=== PATIENT | female | born 1960 | race Caucasian/White ===

== ENCOUNTER → 2016-09-27 | Outpatient (CLI) | payer BC ==
--- NOTE | 2016-09-27 17:04 | CT ---
EXAMINATION TYPE: CT brain wo con DATE OF EXAM: 09/27/2016 5:00 PM COMPARISON: 04/04/2012 HISTORY: Dizziness x [address] DLP: 1100.00 mGycm Automated exposure control for dose reduction was used. FINDINGS: Ventricles and sulci appear normal. There is no mass effect or midline shift. There is no sign of int racranial hemorrhage. The calvarium is intact. IMPRESSION: Negative unenhanced head CT scan. No change.
== END | disposition home or self-care (01) ==
LOC: RADCTMAIN 16:30
PROVIDERS: ATTEND Physician Assistant
DX: R51 Headache (principal)
CPT/HCPCS: 70450

== ENCOUNTER → 2017-03-09 | Outpatient (CLI) | payer BC ==
[2017-03-09 12:12] LABS: Basophils % (A) 1 %; CH 30.3; CHCM 32.9; Eosinophils # (A) 0.1 k/uL (0-0.7); Eosinophils % (A) 2 %; HCT 42.5 % (34.0-46.0); HDW 2.27; HGB 14.4 gm/dL (11.4-16.0); Luc # (Auto) 0.08; Luc % (Auto) 2; Lymphocytes # (A) 1.4 k/uL (1.0-4.8); Lymphocytes % (A) 31 %; MCH 31.3 pg (25.0-35.0); MCHC 33.9 g/dL (31.0-37.0); MCV 92.5 fL (80.0-100.0); Mean Platelet Volume 7.8; Monocytes # (A) 0.3 k/uL (0-1.0); Monocytes % (A) 6 %; Neutrophils # (A) 2.7 k/uL (1.3-7.7); Neutrophils % (A) 59 %; RBC 4.59 m/uL (3.80-5.40); RDW 12.5 % (11.5-15.5); WBC 4.6 k/uL (3.8-10.6); WBC (Perox) 4.67
[2017-03-09 13:06] LABS: ALT 39 U/L (9-52); AST 29 U/L (14-36); Alkaline Phosphatase 101 U/L (38-126); Anion Gap 10 mmol/L; Blood Urea Nitrogen 15 mg/dL (7-17); Calcium 9.4 mg/dL (8.4-10.2); Carbon Dioxide 26 mmol/L (22-30); Chloride 107 mmol/L (98-107); Cholesterol 184 mg/dL (<200); Creatine Kinase 95 U/L (30-135); Glucose 84 mg/dL (74-99); HDL Cholesterol 71 mg/dL (40-60); Magnesium 2.1 mg/dL (1.6-2.3); Non-African American GFR(MDRD) >60 (>60 ml/min/1.73 sqM); Phosphorous 2.9 mg/dL (2.5-4.5); Potassium 4.3 mmol/L (3.5-5.1); Sodium 143 mmol/L (137-145); Total Bilirubin 0.6 mg/dL (0.2-1.3); Total Protein 6.7 g/dL (6.3-8.2); Triglycerides 46 mg/dL (<150)
[2017-03-09 13:11] LABS: Rheumatoid Factor, Qnt <9 IU/mL (<12)
[2017-03-09 14:52] LABS: Erythrocyte Sedimentation Rate 4 mm/hr (0-20)
== END | disposition home or self-care (01) ==
LOC: LABWHC1 03-08 13:08
PROVIDERS: ATTEND Internal Medicine Critical Care Medicine
DX: Z00.00 Encounter for general adult medical examination without abnormal findings (principal); J45.909 Unspecified asthma, uncomplicated; R25.3 Fasciculation
CPT/HCPCS: 36415; 80053; 80061; 82085; 82550; 83735; 84100; 84439; 84443; 85025; 85652; 86038; 86141; 86431

== ENCOUNTER → 2017-03-30 | Outpatient (CLI) | payer BC ==
--- NOTE | 2017-04-02 12:08 | MM ---
Reason for exam: screening (asymptomatic). Last mammogram was performed 1 year and 4 months ago. History: Patient is postmenopausal and had first child at age 35. Family history of breast cancer at age 35. Took hormonal contraceptives for 4 years beginning at age 47. Physical Findings: A clinical breast exam by your physician is recommended on an annual basis and results should be correlated with mammographic findings. MG Screening Mammo w CAD Bilateral CC and MLO view(s) were taken. Prior study comparison: November 30, 2015, bilateral MG screening mammo w CAD. October 19, 2014, bilateral MG screening mammo w CAD. The breast tissue is heterogeneously dense. This may lower the sensitivity of mammography. Finding: There are typically benign calcifications in both breasts. No significant changes in finding since November 30, 2015 and October 19, 2014. ASSESSMENT: Benign, BI-RAD 2 RECOMMENDATION: Routine screening mammogram of both breasts in 1 year.
== END | disposition home or self-care (01) ==
LOC: RADMAMWWP 13:41
PROVIDERS: ATTEND Obstetrics & Gynecology
DX: Z12.31 Encounter for screening mammogram for malignant neoplasm of breast (principal); Z80.3 Family history of malignant neoplasm of breast

== ENCOUNTER → 2017-05-30 | Outpatient (CLI) | payer BC ==
--- NOTE | 2017-05-30 16:18 | BD ---
EXAMINATION TYPE: MG DEXA axial skeleton. DATE OF EXAM: 05/30/2017 COMPARISON: 2014 CLINICAL HISTORY: osteoporosis Height: 5'1 1/2 Weight: 97.8 FRAX RISK QUESTIONS: Alcohol (3 or more units per day): no Family History (Parent hip fracture): no Glucocorticoids (More than 3mos): yes (Ex: prednisone, prednisolone, methylprednisolone, dexamethasone, and hydrocortisone). History of Fracture in Adulthood: yes Secondary Osteoporosis: 1. Type 1 Diabetes: no 2. Hyperthyroidism: no 3. Menopause before 45: no 4. Malnutrition: no 5. Chronic liver disease: no Rheumatoid Arthritis: no Current Tobacco Use: no RISK FACTORS HISTORY OF: History of Wrist Fracture: rt When: 2006 Family History of Osteoporosis: Postmenopausal woman: MEDICATIONS: Additional Medications: asthma, Additional History: EXAM MEASUREMENTS: Bone mineral densitometry was performed using the [employer] System. Bone mineral density as measured about the Lumbar spine is: ----- L1-L4(G/cm2): 0.794 T Score Values are as follows: ----- L2: -3.7 ----- L3: -3.1 ----- L4: -2.8 ----- L1-L4: -3.2 Bone mineral density has: Decreased -2.7% since study of: 10/19/2014 Bone mineral density about the R hip (g/cm2): 0.725 Bone mineral density about the L hip (g/cm2): 0.755 T Score values are as follows: -----R Neck: -2.3 -----L Neck: -2.0 -----R Total: -2.1 -----L Total: -2.2 Bone mineral density has: Decreased -4.1% since study of: 10/19/2014 IMPRESSION: 1. Osteoporosis (T Score less than -2.5) as noted by T Score values at the lumbar spine There is increased fracture risk and therapy is usually indicated based on age. Re-Screen 1-2 years. Osteopenia (T Score between -2.5 and -1 as noted by T score values noted at both hips. There is slightly increased risk of fracture and the patient may be considered for treatment. Re-Screen 2-5 years. NOTE: T-SCORE=SD OF THE YOUNG ADULT MEAN.
== END | disposition home or self-care (01) ==
LOC: RADBDWWP 15:16
PROVIDERS: ATTEND Obstetrics & Gynecology
DX: M81.0 Age-related osteoporosis without current pathological fracture (principal); M85.851 Other specified disorders of bone density and structure, right thigh; M85.852 Other specified disorders of bone density and structure, left thigh
CPT/HCPCS: 77080

== ENCOUNTER 2017-11-29 05:43 | Day surgery (SDC) | payer BC ==
[2017-11-28 12:44] VITALS: BMI 18.3
[~2017-11-29 05:43] MED LIST: ALBUTEROL NEB (CONC) 2.5 MG/0.5 ML INHALATION ONE; ATROPINE SULFATE 0.4 MG/ML 1 ML VIAL IM ONE; LACTATED RINGERS 1,000 ML IV ONE; LIDOCAINE 2% (PF) 20 MG/ML 2 ML AMP INHALATION ONE; Pre Op ABX Message 1 EACH MISC MISCELLANE ONE
[2017-11-29 06:15] VITALS: TEMP 98
[2017-11-29] MEDS ORDERED: LACTATED RINGERS 1,000 ML IV ONE (06:26)
[2017-11-29 06:29] LABS: Glucose,Whole Blood 74 mg/dL (75-99)
[2017-11-29] MEDS ORDERED: LIDOCAINE 1% INJ 10MG/ML (20 ML MDV) ONE (07:03)
[2017-11-29] MEDS ORDERED: PROPOFOL 10 MG/ML 20 ML VIAL IV ONE (07:03)
[2017-11-29] MEDS ORDERED: LIDOCAINE 2% INJ 20 MG/ML INTRATRACH ONE (07:19)
[2017-11-29] MEDS ORDERED: methylPREDNISolone SOD SUCCI 125 MG/2 ML VIAL IV ONE (07:31)
[2017-11-29 07:38] VITALS: RESP 18
--- NOTE | 2017-11-29 08:33 | PCN ---
PROCEDURE NOTE PROCEDURE: Bronchoscopy, airway examination, therapeutic lavage, BAL. LOG SKIDDER: Dr. Olsen. PREOPERATIVE DIAGNOSIS: Severe asthma, retained secretions, probable infection. POSTOPERATIVE DIAGNOSIS: Severe asthma, retained secretions, probable infection. PROCEDURE: There was informed consent. There was universal timeout. The procedure took place in room #3. [facility]. [employer] provided general anesthesia, unconscious sedation. After the patient was adequately sedated and being fully monitored, the bronchoscope was inserted through the right nostril. It passed through the right nasopharynx into the oropharynx. The hypopharynx was identified. There was some purulence noted in the hypopharynx. The hypopharyngeal structures including anterior commissure, true cords, false cords, arytenoids, piriform sinuses, right and left vallecula all appeared normal. After topicalization, bronchoscope was passed through the glottic opening into the trachea. Trachea appeared normal. Trachea lance was sharp. Thin secretions were noted throughout the trachea. After topicalization of the right mainstem and left mainstem, the right upper lobe and its 3 segments, right middle lobe and its 2 segments, right lower lobe and its 5 segments, left upper lobe proper and its 2 segments, lingula and 2 segments and left lower lobe and its 4 segments were all found to have similar findings of diffuse moderate to severe bronchitis. There was mucosal erythema and hyperemia. The mucosa was friable. It bled easily. There was vascular engorgement. There were thick secretions noted throughout. They were suctioned. Then the bronchoscope was wedged into the right middle lobe. BAL took place. The patient tolerated the procedure well. Additional saline was used to suction any additional secretions. Afterward, the bronchoscope was withdrawn. There was no immediate complication. The patient tolerated the procedure well. MMODL / IJN: [id number] /
[2017-11-29 08:42] VITALS: BP 121/75; PULSE 91
[2017-11-29 10:00] LABS: Appearance,BF Blood Tinged; Nucleated Cells, Body Fluid 43 /uL; RBC, Body Fluid 2245 /uL
[2017-11-29 10:03] LABS: Mononuclear WBC,Body Fluid 89 %; Polynuclear WBC,Body Fluid 11 %; Total Cells Counted,Body Fluid 100
== END 2017-11-29 08:51 | disposition home or self-care (01) ==
LOC: ORWHC2ENDO 05:43
PROVIDERS: ATTEND Internal Medicine Critical Care Medicine
DX: J45.909 Unspecified asthma, uncomplicated (principal); M81.0 Age-related osteoporosis without current pathological fracture; M54.30 Sciatica, unspecified side; Z88.2 Allergy status to sulfonamides; Z79.51 Long term (current) use of inhaled steroids; Z79.52 Long term (current) use of systemic steroids; Z79.899 Other long term (current) drug therapy
CPT/HCPCS: 94640; 88108; 88305; 89050; 87070; 87205; 31624; J2001 ×3; J0461; J2930; J2704

== ENCOUNTER → 2018-10-24 | Outpatient (CLI) | payer BC ==
--- NOTE | 2018-10-25 16:48 | BD ---
EXAMINATION TYPE: Axial Bone Density DATE OF EXAM: 10/24/2018 COMPARISON: 05.30.2017 CLINICAL HISTORY: 58 YR OLD FEMALE...ICD-10 CODE: N95.1 POST MENOPAUSAL M81.0 OSTEOPOROSIS Height: 61.5 Weight: 95 FRAX RISK QUESTIONS: Glucocorticoids (More than 3mos): YES (Ex: prednisone, prednisolone, methylprednisolone, dexamethasone, and hydrocortisone). Rheumatoid Arthritis: LUPUS, RH FACTOR RISK FACTORS HISTORY OF: NO FX OVER 50 YRS OLD Family History of Osteoporosis: YES, MOTHER AND 2 MATERNAL AUNT...WITH BROKEN BONES Active: YES Postmenopausal woman: YES AT 52 YRS OLD If Premenopausal, do you have irregular periods: BCP FOR VERY LONG TIME....NONE NOW...STOPPED AT AGE 50 MEDICATIONS: Prednisone or other steroids: YES, ON AND OFF FOR MANY YRS, ASTHMA MEDS, INHALER AND TREATMENTS How Long: MANY YRS Osteoporosis Medications: YES, FORTEO INJECTIONS, 1 YR...AND DIFFERENT MEDS IN THE PAST FOR BONE LOS S, Additional Medications: SINGULAIR FOR ASTHMA, VIT D , Additional History: ASTHMA, OSTEOPOROSIS, EXAM MEASUREMENTS: Bone mineral densitometry was performed using the [employer] System. Bone mineral density as measured about the Lumbar spine is: ----- L1-L4(G/cm2): 0.826 T Score Values are as follows: ----- L1: -3.2 ----- L2: -3.5 ----- L3: -2.7 ----- L4: -2.8 ----- L1-L4: -2.9 Bone mineral density has: Increased 3.4% since study of: 05.30.2017 Bone mineral density about the R hip (g/cm2): 0.699 Bone mineral density about the L hip (g/cm2): 0.739 T Score values are as follows: -----R Neck: -2.2 -----L Neck: -2.1 -----R Total: -2.5 -----L Total: -2.1 Bone mineral density has: Decreased -3.7% since study of: 05.30.2017 FRAX%s: THERE IS A 13.6% CHANCE FOR A MAJOR OSTEOPOROTIC FX AND A 2.6% FOR HIP...PROBABILITY OF FX IN 10 YRS TIME IMPRESSION: Osteoporosis (T Score less than -2.5). There is increased fracture risk and therapy is usually indicated based on age. Re-Screen 1-2 years. NOTE: T-SCORE=SD OF THE YOUNG ADULT MEAN.
--- NOTE | 2018-10-28 08:14 | MM ---
Reason for exam: screening (asymptomatic). Last mammogram was performed 1 year and 7 months ago. History: Patient is postmenopausal and had first child at age 35. Family history of breast cancer at age 35. Took hormonal contraceptives for 4 years beginning at age 47. Physical Findings: A clinical breast exam by your physician is recommended on an annual basis and results should be correlated with mammographic findings. MG Screening Mammo w CAD Bilateral CC and MLO view(s) were taken. Prior study comparison: March 30, 2017, bilateral MG screening mammo w CAD. November 30, 2015, bilateral MG screening mammo w CAD. The breast tissue is heterogeneously dense. This may lower the sensitivity of mammography. No significant changes when compared with prior studies. ASSESSMENT: Benign, BI-RAD 2 RECOMMENDATION: Routine screening mammogram of both breasts in 1 year.
== END | disposition home or self-care (01) ==
LOC: RADMAMWWP 15:02
PROVIDERS: ATTEND Obstetrics & Gynecology
DX: Z12.31 Encounter for screening mammogram for malignant neoplasm of breast (principal); M81.0 Age-related osteoporosis without current pathological fracture; N95.1 Menopausal and female climacteric states
CPT/HCPCS: 77067; 77080

== ENCOUNTER → 2018-11-22 | Outpatient (CLI) | payer BC ==
--- NOTE | 2018-11-22 12:54 | CT ---
EXAMINATION TYPE: CT iac wo con DATE OF EXAM: 11/22/2018 COMPARISON: CT brain September 27, 2016 HISTORY: Left sided ear pain and pressure CT DLP: 150 mGycm. Automated Exposure Control for Dose Reduction was Utilized. TECHNIQUE: CT scan of internal auditory canal is performed without contrast, thin cut axial images ar e obtained, coronal reformatted images are also reviewed. FINDINGS: The external auditory canals are patent bilaterally. Mastoid air cells show no evidence of abnormal opacification bilaterally. The middle ear ossicles are symmetric and unremarkable. There is no evidence of suspicious surrounding soft tissue density to suggest cholesteatoma. The scutum is preserved bilaterally. The cochlea and the semicircular canals are symmetric and unremarkable. Ves tibular aqueduct and internal carotid canal appear unremarkable. Temporomandibular joints show flattening of the mandibular condyles bilaterally with some spurring, s ome subchondral cystic change on the right is present. Suspect persistent mucous retention cyst or po lyp left maxillary sinus axial image 30 unchanged from prior with completely opacified single sinus a ir cell. Visualized paranasal sinuses are otherwise grossly clear. Visualized portion brain parenchy ma is felt within normal limits. IMPRESSION: No significant abnormality seen to account for patient's symptoms on dedicated IAC CT. N o significant change from prior CT brain study.
== END | disposition home or self-care (01) ==
LOC: RADCTMAIN 12:07
PROVIDERS: ATTEND Otolaryngology
DX: H92.09 Otalgia, unspecified ear (principal)
CPT/HCPCS: 70480

== ENCOUNTER → 2020-05-17 | Outpatient (CLI) | payer BC ==
[2020-05-17 14:49] LABS: Basophils # (A) 0.1 k/uL (0-0.2); Basophils % (A) 1 %; Eosinophils # (A) 0.1 k/uL (0-0.7); Eosinophils % (A) 2 %; HCT 44.6 % (34.0-46.0); HGB 14.4 gm/dL (11.4-16.0); Lymphocytes # (A) 1.9 k/uL (1.0-4.8); Lymphocytes % (A) 28 %; MCH 29.8 pg (25.0-35.0); MCHC 32.3 g/dL (31.0-37.0); MCV 92.1 fL (80.0-100.0); Monocytes # (A) 0.4 k/uL (0-1.0); Monocytes % (A) 6 %; Neutrophils # (A) 4.3 k/uL (1.3-7.7); Neutrophils % (A) 62 %; Platelet Count 244 k/uL (150-450); RBC 4.85 m/uL (3.80-5.40); RDW 12.8 % (11.5-15.5); WBC 6.9 k/uL (3.8-10.6)
[2020-05-18 03:34] LABS: ALT 22 U/L (8-44); AST 29 U/L (13-35); African American GFR (CKD) 79.4 (60.0-200.0); Albumin/Globulin Ratio 2.32 (1.60-3.17); Alkaline Phosphatase 123 U/L (41-126); BUN/Creat Ratio 18.89 Ratio (12.00-20.00); Calcium 9.5 mg/dL (8.7-10.3); Carbon Dioxide 26.7 mmol/L (21.6-31.8); Chloride 105 mmol/L (96-109); Chol/HDL Ratio 2.71; Cholesterol 187 mg/dL (0-200); Globulin 1.9 g/dL (1.6-3.3); Glucose 87 mg/dL (70-110); Non-African American GFR(CKD) 68.5 (60.0-200.0); Potassium 4.6 mmol/L (3.5-5.5); Sodium 142 mmol/L (135-145); Total Bilirubin 0.7 mg/dL (0.3-1.2); Total Protein 6.3 g/dL (6.2-8.2); Triglycerides <50.0 mg/dL (0.0-149.0)
[2020-05-18 03:47] LABS: Hemoglobin A1C 5.6 % (4.0-6.0)
== END | disposition home or self-care (01) ==
LOC: LABWHC1 14:17
PROVIDERS: ATTEND Internal Medicine Critical Care Medicine
DX: Z00.00 Encounter for general adult medical examination without abnormal findings (principal); J45.909 Unspecified asthma, uncomplicated; M85.80 Other specified disorders of bone density and structure, unspecified site
CPT/HCPCS: 36415; 80053; 80061; 82306; 83036; 84439; 84443; 85025

== ENCOUNTER → 2020-06-21 | Outpatient (CLI) | payer BC ==
--- NOTE | 2020-06-21 16:37 | FL ---
EXAMINATION TYPE: FL barium swallow w video DATE OF EXAM: 06/21/2020 MODIFIED BARIUM SWALLOW FLUOROSCOPY EXAM CLINICAL HISTORY: Esophageal dysphasia. Choking. TECHNIQUE: Notified barium swallow study is performed utilizing thin liquid barium, honey and nectar thick liquid barium, barium thick puree, and barium coated cracker. COMPARISON: None. FINDINGS: The oral and pharyngeal phases show satisfactory initiation and propagation with all modali ties tested. Normal mastication is seen with solid modalities tested. There is no evidence of penet ration or aspiration with any modality tested. No significant pharyngeal residue was appreciated. Total fluoroscopy time 43 seconds IMPRESSION: No evidence of penetration or aspiration. Please refer to speech therapist notes for fu rther details if necessary.
== END | disposition home or self-care (01) ==
LOC: RADFLMAIN 11:18
PROVIDERS: ATTEND Internal Medicine Critical Care Medicine
DX: R13.19 Other dysphagia (principal)
CPT/HCPCS: 74230

== ENCOUNTER → 2021-03-25 | Outpatient (CLI) | payer BC ==
--- NOTE | 2021-03-25 11:47 | BD ---
EXAMINATION TYPE: Axial Bone Density DATE OF EXAM: 03/25/2021 COMPARISON: NONE CLINICAL HISTORY: Height: 62 Weight: 94.1 FRAX RISK QUESTIONS: Alcohol (3 or more units per day): no Family History (Parent hip fracture): no Glucocorticoids (More than 3mos): no (Ex: prednisone, prednisolone, methylprednisolone, dexamethasone, and hydrocortisone). History of Fracture in Adulthood: yes Secondary Osteoporosis: 1. Type 1 Diabetes: no 2. Hyperthyroidism: no 3. Menopause before 45: no 4. Malnutrition: no 5. Chronic liver disease: no Rheumatoid Arthritis: no Current Tobacco Use: no RISK FACTORS HISTORY OF: History of Wrist Fracture: When: Surgery to Spine/Hip(right/left)/Wrist (right/left): no Family History of Osteoporosis: yes Active: yes Diet low in dairy products/other sources of calcium: no Postmenopausal woman: age 50 Lost more than 2 inches in height since high school: no MEDICATIONS: asthma meds, singular, vitamins Additional History: EXAM MEASUREMENTS: Bone mineral densitometry was performed using the [employer]. Bone mineral density as measured about the Lumbar spine is: ----- L1-L4(G/cm2): 0.757 T Score Values are as follows: ----- L2: -4.1 ----- L3: -3.4 ----- L4: -3.0 ----- L1-L4: -3.5 Bone mineral density has: decreased -2.9 % since study of: 10.24.2018 Bone mineral density about the R hip (g/cm2): 0.718 Bone mineral density about the L hip (g/cm2): 0.734 T Score values are as follows: -----R Neck: -2.3 -----L Neck: -2.2 -----R Total: -2.6 -----L Total: -2.3 Bone mineral density has: decreased -7.8 % since study of: 10.24.2018 IMPRESSION: Osteoporosis NOTE: T-SCORE=SD OF THE YOUNG ADULT MEAN.
--- NOTE | 2021-03-29 10:12 | MM ---
Reason for exam: screening (asymptomatic). Last mammogram was performed 2 years and 5 months ago. History: Patient is postmenopausal and had first child at age 35. Family history of breast cancer at age 35. Took hormonal contraceptives for 4 years beginning at age 47. Physical Findings: A clinical breast exam by your physician is recommended on an annual basis and results should be correlated with mammographic findings. MG Screening Mammo w CAD Bilateral CC and MLO view(s) were taken. Prior study comparison: October 24, 2018, bilateral MG screening mammo w CAD. March 30, 2017, bilateral MG screening mammo w CAD. The breast tissue is heterogeneously dense. This may lower the sensitivity of mammography. No significant changes when compared with prior studies. ASSESSMENT: Negative, BI-RAD 1 RECOMMENDATION: Routine screening mammogram of both breasts in 1 year.
== END | disposition home or self-care (01) ==
LOC: RADMAMWWP 09:27
PROVIDERS: ATTEND Obstetrics & Gynecology
DX: Z12.31 Encounter for screening mammogram for malignant neoplasm of breast (principal); M81.0 Age-related osteoporosis without current pathological fracture; Z78.0 Asymptomatic menopausal state; Z79.3 Long term (current) use of hormonal contraceptives; Z80.3 Family history of malignant neoplasm of breast
CPT/HCPCS: 77067; 77080

== ENCOUNTER → 2021-07-09 | Outpatient (CLI) | payer BC ==
[2021-07-09 13:53] LABS: Basophils # (A) 0.07 X 10*3/uL (0.00-0.10); Basophils % (A) 1.4 %; Eosinophils # (A) 0.21 X 10*3/uL (0.04-0.35); Eosinophils % (A) 4.3 %; Erythrocyte Sedimentation Rate 4 mm/Hr (0-30); HCT 46.9 % (37.2-46.3); HGB 14.5 g/dL (12.0-15.0); Lymphocytes # (A) 1.59 X 10*3/uL (0.90-5.00); Lymphocytes % (A) 32.6 %; MCH 29.5 pg (27.0-32.0); MCHC 30.9 g/dL (32.0-37.0); MCV 95.3 fL (80.0-97.0); Mean Platelet Volume 10.6 fL (9.5-12.2); Monocytes # (A) 0.55 X 10*3/uL (0.20-1.00); Monocytes % (A) 11.3 %; Neutrophils # (A) 2.44 X 10*3/uL (1.80-7.70); Neutrophils % (A) 50.2 %; Platelet Count 268 X 10*3/uL (140-440); RBC 4.92 X 10*6/uL (4.10-5.20); RDW 12.5 % (11.5-14.5); WBC 4.87 X 10*3/uL (4.50-10.00)
[2021-07-09 13:54] LABS: ALT 23 U/L (8-44); AST 23 U/L (13-35); African American GFR (CKD) 82.6 (60.0-200.0); Albumin 4.6 g/dL (3.8-4.9); Albumin/Globulin Ratio 2.11 (1.60-3.17); Alkaline Phosphatase 121 U/L (41-126); BUN/Creat Ratio 18.24 Ratio (12.00-20.00); Blood Urea Nitrogen 15.8 mg/dL (9.0-27.0); C Reactive Protein, High Sens 0.718 mg/L (0.000-3.000); Calcium 9.9 mg/dL (8.7-10.3); Carbon Dioxide 25.7 mmol/L (21.6-31.8); Chloride 103 mmol/L (96-109); Chol/HDL Ratio 2.96 Ratio; Creatine Kinase 80 U/L (26-186); Globulin 2.2 g/dL (1.6-3.3); Glucose 93 mg/dL (70-110); Non-African American GFR(CKD) 71.3 (60.0-200.0); Potassium 4.6 mmol/L (3.5-5.5); Sodium 141 mmol/L (135-145); Total Protein 6.7 g/dL (6.2-8.2); VLDL Calculation 9.32 mg/dL (5.00-40.00)
[2021-07-09 13:59] LABS: Protein, Total 6.8 g/dL (6.2-8.2)
[2021-07-09 16:53] LABS: Rheumatoid Factor, Qnt <10 IU/mL (0-15)
[2021-07-10 18:11] LABS: Anti-DNA, DS unit <1.0 IU/mL; Anti-Smith Ab Interp NEGATIVE (NEGATIVE); DNA Double-Stranded NEGATIVE (NEGATIVE)
[2021-07-11 11:01] LABS: Angiotensin-1 Converting Enz. 28 U/L (8-52)
== END | disposition home or self-care (01) ==
LOC: LABWHC1 08:38
PROVIDERS: ATTEND Internal Medicine Critical Care Medicine
DX: Z00.00 Encounter for general adult medical examination without abnormal findings (principal); M36.8 Systemic disorders of connective tissue in other diseases classified elsewhere; M81.0 Age-related osteoporosis without current pathological fracture; J45.909 Unspecified asthma, uncomplicated; M54.40 Lumbago with sciatica, unspecified side
CPT/HCPCS: 36415; 80053; 80061; 82164; 82306; 82550; 83036; 83721; 84165; 84439; 84443; 85025; 85652; 86038; 86141; 86225; 86235; 86255; 86431

== ENCOUNTER → 2022-06-15 | Outpatient (CLI) | payer BC ==
--- NOTE | 2022-06-16 09:48 | MM ---
Reason for Exam: Screening (asymptomatic). Last mammogram was performed 1 year(s) and 3 month(s) ago. Patient History: Menarche at age 10. First Full-Term at age 35. Late child-bearing (after 30). Postmenopausal. Patient has history of breast feeding. Hormonal Contraceptives for 4 years from age 47 until age 52. Maternal aunt had ovarian cancer, age 50. Maternal aunt had ovarian cancer, age 50. Maternal cousin had ovarian cancer, age 45. Risk Values: Rossana 5 year model risk: 2.2%. NCI Lifetime model risk: 8.9%. Prior Study Comparison: 03/30/2017 Bilateral Screening Mammogram, [facility]. 10/24/2018 Bilateral Screening Mammogram, [facility]. 03/25/2021 Bilateral Screening Mammogram, [facility]. Tissue Density: The breast tissue is heterogeneously dense. This may lower the sensitivity of mammography. Findings: Analyzed By CAD. Focal asymmetry central upper outer quadrant right breast appears more defined. This may represent superimposition shadow but further evaluation is recommended. Otherwise, no significant change. Overall Assessment: Incomplete: need additional imaging evaluation, BI-RAD 0 Management: Special View Mammogram of the right breast. Including spot 3-D CC, spot 3-D MLO, and 3-D LM views. Targeted right breast ultrasound if any persisting abnormality. [facility] will attempt to contact patient to return for supplemental views and ultrasound if indicated. Electronically signed and approved by: Chey Oneil M.D. Radiologist
== END | disposition home or self-care (01) ==
LOC: RADMAMWWP 15:42
PROVIDERS: ATTEND Obstetrics & Gynecology
DX: Z12.31 Encounter for screening mammogram for malignant neoplasm of breast (principal); Z78.0 Asymptomatic menopausal state
CPT/HCPCS: 77067

== ENCOUNTER → 2022-06-21 | Outpatient (CLI) | payer BC ==
--- NOTE | 2022-06-21 15:18 | MM ---
Reason for Exam: Additional evaluation requested from abnormal screening. Last screening mammogram was performed less than 1 month ago. Patient History: Menarche at age 10. First Full-Term at age 35. Late child-bearing (after 30). Postmenopausal. Patient has history of breast feeding. Hormonal Contraceptives for 4 years from age 47 until age 52. Maternal aunt had ovarian cancer, age 50. Maternal aunt had ovarian cancer, age 50. Maternal cousin had ovarian cancer, age 45. Risk Values: Rossana 5 year model risk: 2.2%. NCI Lifetime model risk: 8.9%. Prior Study Comparison: 10/24/2018 Bilateral Screening Mammogram, [facility]. 03/25/2021 Bilateral Screening Mammogram, [facility]. 06/15/2022 Bilateral MG screening mammo w CAD, [facility]. Tissue Density: Right: The breast tissue is heterogeneously dense. This may lower the sensitivity of mammography. Findings: Analyzed By CAD. Pattern appears stable. Under compression no persistent suspicious architectural distortion or focal asymmetry is evident. Right medial lateral view appears normal. Overall Assessment: Probably benign, BI-RAD 3 Management: Diagnostic Mammogram of the right breast in 6 months. A clinical breast exam by your physician is recommended on an annual basis and results should be correlated with mammographic findings. This exam should not preclude additional follow-up of suspicious palpable abnormalities. Results were given to the patient verbally at the time of exam. Electronically signed and approved by: Tiago Horta D.O. Radiologis
== END | disposition home or self-care (01) ==
LOC: RADMAMWWP 14:56
PROVIDERS: ATTEND Obstetrics & Gynecology
DX: R92.8 Other abnormal and inconclusive findings on diagnostic imaging of breast (principal); Z78.0 Asymptomatic menopausal state; Z80.41 Family history of malignant neoplasm of ovary
CPT/HCPCS: 77065

== ENCOUNTER → 2022-12-18 | Outpatient (CLI) | payer BC ==
--- NOTE | 2022-12-18 14:44 | MM ---
Reason for Exam: Follow-up at short interval from prior study. Last screening mammogram was performed 6 month(s) ago. Patient History: Menarche at age 10. First Full-Term at age 35. Late child-bearing (after 30). Postmenopausal. Patient has history of breast feeding. Hormonal Contraceptives for 4 years from age 47 until age 52. Maternal aunt had ovarian cancer, age 50. Maternal aunt had ovarian cancer, age 50. Maternal cousin had ovarian cancer, age 45. Risk Values: Rossana 5 year model risk: 2.2%. NCI Lifetime model risk: 8.9%. Prior Study Comparison: 03/25/2021 Bilateral Screening Mammogram, [facility]. 06/15/2022 Bilateral MG screening mammo w CAD, [facility]. 06/21/2022 Right MG work up mamm w CAD RT, [facility]. Tissue Density: Right: The breast tissue is heterogeneously dense. This may lower the sensitivity of mammography. Findings: Analyzed By CAD. A few scattered tiny round calcifications in the right breast are redemonstrated. Benign-appearing vascular calcification in the right breast is again seen. Overall Assessment: Benign, BI-RAD 2 Management: Screening Mammogram of both breasts in 6 months. Back on schedule. Results were given to the patient verbally at the time of exam. Electronically signed and approved by: Emmanuel Rao M.D.
--- NOTE | 2022-12-18 15:04 | USB ---
Reason for Exam: Follow-up at short interval from prior study. Patient History: Menarche at age 10. First Full-Term at age 35. Late child-bearing (after 30). Postmenopausal. Patient has history of breast feeding. Hormonal Contraceptives for 4 years from age 47 until age 52. Maternal aunt had ovarian cancer, age 50. Maternal aunt had ovarian cancer, age 50. Maternal cousin had ovarian cancer, age 45. Niece had breast cancer under age 50. Niece had breast cancer at or over age 50. Risk Values: Rossana 5 year model risk: 2.2%. NCI Lifetime model risk: 8.9%. Technique: Method: Whole Breast Handheld. Prior Study Comparison: 03/25/2021 Bilateral Screening Mammogram, [facility]. 06/15/2022 Bilateral MG screening mammo w CAD, [facility]. 06/21/2022 Right MG work up mamm w CAD RT, [facility]. Findings: The whole breast of the right breast, the axilla of the right breast and the retroareolar of the right breast were scanned. Imaged: Ultrasound imaging of: All 4 quadrants, the retroareolar region and axilla. No evidence for organizing fluid collection or mass. Overall Assessment: Negative, BI-RAD 1 Management: Screening Mammogram of both breasts in 1 year. A clinical breast exam by your physician is recommended on an annual basis and results should be correlated with mammographic findings. This exam should not preclude additional follow-up of suspicious palpable abnormalities. Results were given to the patient verbally at the time of exam. Electronically signed and approved by: David Frank DO
== END | disposition home or self-care (01) ==
LOC: RADMAMWWP 14:07
PROVIDERS: ATTEND Obstetrics & Gynecology
DX: R92.8 Other abnormal and inconclusive findings on diagnostic imaging of breast (principal); Z78.0 Asymptomatic menopausal state
CPT/HCPCS: 77061; 77065

== ENCOUNTER → 2023-08-01 | Outpatient (CLI) | payer BC, MEDICARE ==
--- NOTE | 2023-08-05 18:09 | MM ---
Reason for Exam: Screening (asymptomatic). Last mammogram was performed 1 year(s) and 2 month(s) ago. Patient History: Menarche at age 10. First Full-Term at age 35. Late child-bearing (after 30). Postmenopausal. Patient has history of breast feeding. Estrogen, starting at age 62 for 1 year. Hormonal Contraceptives for 4 years from age 47 until age 52. Maternal aunt had ovarian cancer, age 50. Maternal aunt had ovarian cancer, age 50. Maternal cousin had ovarian cancer, age 45. Niece had breast cancer under age 50. Niece had breast cancer at or over age 50. Risk Values: Rossana 5 year model risk: 2.3%. NCI Lifetime model risk: 8.6%. Prior Study Comparison: 06/15/2022 Bilateral MG screening mammo w CAD, [facility]. 06/21/2022 Right MG work up mamm w CAD RT, [facility]. 12/18/2022 Right MG 3D diag mammo w/cad RT, [facility]. Tissue Density: The breast tissue is heterogeneously dense. This may lower the sensitivity of mammography. Findings: Analyzed By CAD. There is no suspicious group of microcalcifications or new suspicious mass in either breast. Overall Assessment: Negative, BI-RAD 1 Management: Screening Mammogram of both breasts in 1 year. . Patient should continue monthly self-breast exams. A clinical breast exam by your physician is recommended on an annual basis. This exam should not preclude additional follow-up of suspicious palpable abnormalities. Note on Rossana scores and lifetime risk: 1. A Rossana score greater than 3% is considered moderate risk. If this is the case, consider specialist referral to assess eligibility for a risk reducing agent. 2. If overall lifetime risk for the development of breast cancer is 20% or higher, the patient may qualify for future screening with alternating mammogram and breast MRI. Electronically signed and approved by: Chey Oneil M.D. Radiologist
== END | disposition home or self-care (01) ==
LOC: RADMAMWWP 15:20
PROVIDERS: ATTEND Obstetrics & Gynecology
DX: Z12.31 Encounter for screening mammogram for malignant neoplasm of breast (principal); Z78.0 Asymptomatic menopausal state; Z80.41 Family history of malignant neoplasm of ovary
CPT/HCPCS: 77063; 77067

== ENCOUNTER → 2023-08-23 | Outpatient (CLI) | payer MEDICARE ==
--- NOTE | 2023-08-23 14:09 | BD ---
EXAMINATION TYPE: Axial Bone Density DATE OF EXAM: 08/23/2023 CLINICAL HISTORY: 63 years old Female. ICD-10 CODE: M85.88 OTH DISRD OF BONE DENSITY AND STRUCTURE Height: 61.5 Weight: 92 FRAX RISK QUESTIONS: Family History (Parent hip fracture): no History of Fracture in Adulthood: yes, lt wrist , lt tib, Secondary Osteoporosis: no RISK FACTORS HISTORY OF: History of Wrist Fracture: yes When: 2012 Family History of Osteoporosis: yes Active: yes Diet low in dairy products/other sources of calcium: no Postmenopausal woman: yes Lost more than 2 inches in height since high school: no Frequent falls: no MEDICATIONS: Additional Medications: no asthma Additional History: yes lupus EXAM MEASUREMENTS: Bone mineral densitometry was performed using the [employer] System. Bone mineral density as measured about the Lumbar spine is: ----- L1-L4(G/cm2): 0.799 T Score Values are as follows: ----- L1: -3.5 ----- L2: -3.7 ----- L3: -3.2 ----- L4: -2.8 ----- L1-L4: -3.2 Z Score Values are as follows: ----- L1: -1.1 ----- L2: -1.3 ----- L3: -0.8 ----- L4: -0.4 ----- L1-L4: -0.8 Bone mineral density has: Increased 5.5% since study of: 03/25/2021 Bone mineral density about the R hip (g/cm2): 0.704 Bone mineral density about the L hip (g/cm2): 0.721 T Score values are as follows: -----R Neck: -2.4 -----L Neck: -2.4 -----R Total: -2.4 -----L Total: -2.3 Z Score values are as follows: -----R Neck: -0.4 -----L Neck: -0.4 -----R Total: -0.7 -----L Total: -0.5 Bone mineral density has: Increased 2.1% since study of: 03/25/2021 FRAX%s: The graph provided illustrates a 17% chance for a major osteoporotic fx and a 3.9% chance for the hips probability for fx in 10 years time. IMPRESSION: Osteoporosis (T Score less than -2.5). There is increased fracture risk and therapy is usually indicated based on age. Re-Screen 1-2 years. NOTE: T-SCORE=SD OF THE YOUNG ADULT MEAN.
== END | disposition home or self-care (01) ==
LOC: RADBDWWP 08:35
PROVIDERS: ATTEND Obstetrics & Gynecology
DX: M81.0 Age-related osteoporosis without current pathological fracture (principal); M85.89 Other specified disorders of bone density and structure, multiple sites; Z78.0 Asymptomatic menopausal state
CPT/HCPCS: 77080

== ENCOUNTER 2024-07-10 09:22 | Day surgery (SDC) | payer MEDICARE ==
--- NOTE | 2024-07-10 07:35 | P.GSHP ---
History of Present Illness H&P Date: 07/10/24 CHIEF COMPLAINT: GERD and colon screen HISTORY OF PRESENT ILLNESS: The patient is a 64-year-old female who presents with gastroesophageal reflux disease and need for colon screen. Upper and lower endoscopy were offered for further evaluation and management. PAST MEDICAL HISTORY: Please see list. PAST SURGICAL HISTORY: Please see list. MEDICATIONS: Please see list. ALLERGIES: Please see list. SOCIAL HISTORY: No illicit drug use FAMILY HISTORY: No reports of Crohn disease or ulcerative colitis. REVIEW OF ORGAN SYSTEMS: CONSTITUTIONAL: No reports of fevers or chills. GI: Denies any blood in stools or constipation. PHYSICAL EXAM: VITAL SIGNS: Stable GENERAL: Well-developed pleasant in no acute distress. HEENT: No scleral icterus. Extraocular movements grossly intact. Moist buccal mucosa. NECK: Supple without lymphadenopathy. CHEST: Unlabored respirations. Equal bilateral excursions. CARDIOVASCULAR: Regular rate and rhythm. Distal 2+ pulses. ABDOMEN: Soft, nondistended. MUSCULOSKELETAL: No clubbing, cyanosis, or edema. ASSESSMENT: 1. Gastroesophageal reflux disease 2. Colon screen. PLAN: 1. Recommend proceeding with an upper and lower endoscopy Past Medical History Past Medical History: Asthma, Pneumonia Additional Past Medical History / Comment(s): OSTEOPOROSIS, LUPUS, HAVING DIFFICULTY SWALLOWING-STATES SHE CHOKES ON LIQUIDS WITH SOLID FOOD LIKE SOUP. chemo cream for pre cancerous areas on skin History of Any Multi-Drug Resistant Organisms: None Reported Additional Past Surgical History / Comment(s): D & C 1992. COLONOSCOPY. BRONCHOSCOPY. Past Anesthesia/Blood Transfusion Reactions: No Reported Reaction, Family History of Problems w/ Anesthesia Additional Past Anesthesia/Blood Transfusion Reaction / Comment(s): mother had issue with anesthesia not fevers, just very reactive to it. Smoking Status: Never smoker - Past Family History Mother Family Medical History: Cancer, Deep Vein Thrombosis (DVT) Additional Family Medical History / Comment(s): SKIN CANCER Father Family Medical History: Cancer Additional Family Medical History / Comment(s): SKIN CANCER Medications and Allergies Home Medications Medication Instructions Recorded Confirmed Type Albuterol Inhaler [Ventolin Hfa 1 - 2 puff INHALATION Q6HR PRN 11/28/17 07/08/24 History Inhaler] Cholecalciferol [Vitamin D3] 1,000 unit PO DAILY 11/28/17 07/08/24 History Montelukast [Singulair] 10 mg PO HS 11/28/17 07/08/24 History Albuterol Nebulized [Ventolin 1.25 mg INHALATION DIRECTED PRN 01/24/19 07/08/24 History Nebulized] Ascorbic Acid [Vitamin C] 500 mg PO DAILY 06/04/20 07/08/24 History Calcium (Unk) 1,200 units PO DAILY 07/08/24 07/08/24 History Fluticasone/Vilanterol [Breo 1 puff INHALATION DAILY 07/08/24 07/08/24 History Ellipta 200-25 Mcg Inhaler] Allergies Allergy/AdvReac Type Severity Reaction Status Date / Time acetaminophen [From Fioricet] Allergy Rash/Hives Verified 07/08/24 11:50 butalbital [From Fioricet] Allergy Rash/Hives Verified 07/08/24 11:50 caffeine [From Fioricet] Allergy Rash/Hives Verified 07/08/24 11:50 morphine Allergy Rash/Hives Verified 07/08/24 11:50 Sulfa (Sulfonamide Allergy Rash/Hives Verified 07/08/24 11:50 Antibiotics)
[~2024-07-10 09:22] MED LIST changes: -ALBUTEROL NEB (CONC) 2.5 MG/0.5 ML INHALATION ONE; -ATROPINE SULFATE 0.4 MG/ML 1 ML VIAL IM ONE; -LACTATED RINGERS 1,000 ML IV ONE; +LIDOCAINE 1% (10MG/ML) FOR IV START INTRADERMA PRN; -LIDOCAINE 2% (PF) 20 MG/ML 2 ML AMP INHALATION ONE; -Pre Op ABX Message 1 EACH MISC MISCELLANE ONE
[2024-07-10] MEDS: IV FLUID CONTINUATION 1,000 ML IV ONE (09:32)
[2024-07-10] MEDS: LACTATED RINGERS 1,000 ML IV SCH (09:53)
[2024-07-10 09:54] VITALS: TEMP 97.8
[2024-07-10] MEDS ORDERED: PROPOFOL 10 MG/ML 20 ML VIAL IV ONE (10:29)
[2024-07-10] MEDS ORDERED: LIDOCAINE 1% INJ 10MG/ML (20 ML MDV) ONE (10:29)
--- NOTE | 2024-07-10 10:44 | P.PCN ---
Date of Procedure: 07/10/24 Description of Procedure: PREOPERATIVE DIAGNOSIS: Gastroesophageal reflux disease. Gastritis Duodenitis POSTOPERATIVE DIAGNOSIS: Gastroesophageal reflux disease. Gastritis. OPERATION: Esophagogastroduodenoscopy with biopsies along esophagus, antrum and duodenum SURGEON: Almita Bardales MD ANESTHESIA: MAC. INDICATIONS: The patient is a 64-year-old female who presents with reflux disease. Benefits and risks of the procedure were described. Informed consent was obtained. DESCRIPTION: The patient was brought into the endoscopy suite and laid in the left lateral decubitus position. An Olympus gastroscope was passed along the posterior oropharynx down to the distal esophagus where the squamocolumnar junction was encountered at 35 cm from the incisors. The stomach was entered and no bile reflux was found. Additional findings are listed below. Biopsies with cold forceps were obtained of the antrum. The first through third portion of the duodenum was examined. Retroflexion of the scope confirmed Hill grade 2 lower esophageal valve. The squamocolumnar junction demonstrated LA grade B erosive esophagitis. The stomach was desufflated. The patient tolerated the procedure well. FINDINGS: Squamocolumnar junction 35 cm from the incisors. Diaphragmatic hiatus at 35 cm. Hill grade 2 lower esophageal valve. LA grade B erosive esophagitis. Biopsies obtained Biopsies obtained of the duodenum. Chronic gastritis with biopsies obtained. RECOMMENDATIONS: Upper endoscopy as needed.
--- NOTE | 2024-07-10 11:02 | P.PCN ---
Date of Procedure: 07/10/24 Description of Procedure: PREOPERATIVE DIAGNOSIS: Abnormal Cologuard testing POSTOPERATIVE DIAGNOSIS: Colonoscopy screening. OPERATION: Colonoscopy to the cecum, ileocecal valve and appendiceal orifice. SURGEON: Almita Bardales MD. ANESTHESIA: MAC. INDICATIONS: The patient is a 64-year-old female who presents after abnormal Cologuard testing. Benefits and risks were described and informed consent was obtained. DESCRIPTION OF PROCEDURE: The patient had undergone GoLytely prep. The patient had been brought into the operating room and laid in the left lateral decubitus position. After adequate intravenous sedation, the rectum was examined with 2% lidocaine jelly. No external hemorrhoids were encountered. The rectal tone was within normal limits. No lesions were palpated in the rectal vault. An Olympus colonoscope was advanced until the cecum, ileocecal valve and appendiceal orifice were clearly viewed. The prep was excellent. No scattered diverticulosis was encountered. No colonic polyps were found. No evidence of focal colitis was found. Retroflexion of the scope demonstrated grade 1 internal hemorrhoids without active bleeding or inflammation. The colon was desufflated. The patient had tolerated the procedure well. Withdrawal time was over 6 minutes. FINDINGS: Aronchick preparation quality scale 1 (1-5) Internal hemorrhoids, grade 1 No external prolapsed hemorrhoids. No arteriovenous malformations. No adenomatous polyps. No focal colitis. No large scattered diverticulosis RECOMMENDATIONS: Lower endoscopy in 5 years, 2028 Plan - Discharge Summary Discharge Rx Participant: No New Discharge Prescriptions: Continue Montelukast [Singulair] 10 mg PO HS Cholecalciferol [Vitamin D3 (25 Mcg = 1000 Iu)] 1,000 unit PO DAILY Albuterol Inhaler [Ventolin Hfa Inhaler] 1 - 2 puff INHALATION Q6HR PRN PRN Reason: Shortness Of Breath Albuterol Nebulized [Ventolin Nebulized (Accuneb)] 1.25 mg INHALATION DIRECTED PRN PRN Reason: Shortness Of Breath Ascorbic Acid [Vitamin C] 500 mg PO DAILY Calcium (Unk) 1,200 units PO DAILY Fluticasone/Vilanterol [Breo Ellipta 200-25 Mcg Inhaler] 1 puff INHALATION DAILY Discharge Medication List Albuterol Inhaler [Ventolin Hfa Inhaler] 1 - 2 puff INHALATION Q6HR PRN 11/28/17 [History] Cholecalciferol [Vitamin D3 (25 Mcg = 1000 Iu)] 1,000 unit PO DAILY 11/28/17 [History] Montelukast [Singulair] 10 mg PO HS 11/28/17 [History] Albuterol Nebulized [Ventolin Nebulized (Accuneb)] 1.25 mg INHALATION DIRECTED PRN 01/24/19 [History] Ascorbic Acid [Vitamin C] 500 mg PO DAILY 06/04/20 [History] Calcium (Unk) 1,200 units PO DAILY 07/08/24 [History] Fluticasone/Vilanterol [Breo Ellipta 200-25 Mcg Inhaler] 1 puff INHALATION DAILY 07/08/24 [History] Follow up Appointment(s)/Referral(s): Almita Bardales MD [STAFF PHYSICIAN] - 07/29/24 3:30 pm Patient Instructions/Handouts: Gastritis (ED), Moderate Sedation (DC) Activity/Diet/Wound Care/Special Instructions: Repeat colonoscopy 5 years2028 Discharge Disposition: HOME SELF-CARE
[2024-07-10 11:15] VITALS: BP 109/65; PULSE 95; RESP 17
== END 2024-07-10 11:48 | disposition home or self-care (01) ==
LOC: ORWHC2ENDO 09:22
PROVIDERS: ATTEND Surgery Plastic and Reconstructive Surgery
DX: K21.00 Gastro-esophageal reflux disease with esophagitis, without bleeding (principal); K29.80 Duodenitis without bleeding; K64.0 First degree hemorrhoids; J45.909 Unspecified asthma, uncomplicated; M81.0 Age-related osteoporosis without current pathological fracture; Z88.1 Allergy status to other antibiotic agents; Z88.2 Allergy status to sulfonamides; Z79.51 Long term (current) use of inhaled steroids; Z79.899 Other long term (current) drug therapy; Z88.5 Allergy status to narcotic agent; Z88.8 Allergy status to other drugs, medicaments and biological substances
CPT/HCPCS: 88305; 45378; 43239; J2003; J2704

== ENCOUNTER → 2024-08-07 | Outpatient (CLI) | payer MEDICARE ==
[2024-08-07 15:38] LABS: ALT 18 U/L (8-44); AST 22 U/L (13-35); Albumin 4.6 g/dL (3.8-4.9); Alkaline Phosphatase 100 U/L (41-126); BUN/Creat Ratio 21.33 Ratio (12.00-20.00); Blood Urea Nitrogen 19.2 mg/dL (9.0-27.0); Calcium 9.7 mg/dL (8.7-10.3); Chloride 106 mmol/L (96-109); Chol/HDL Ratio 2.79 Ratio; Globulin 2.3 g/dL (1.6-3.3); Glucose 92 mg/dL (70-110); LDL Cholesterol,Calculated 128.6 mg/dL (0.0-131.0); Potassium 4.3 mmol/L (3.5-5.5); Sodium 143 mmol/L (135-145); Total Bilirubin 0.5 mg/dL (0.3-1.2); Total Protein 6.9 g/dL (6.2-8.2); VLDL Calculation 10.06 mg/dL (5.00-40.00)
[2024-08-07 17:09] LABS: Basophils # (A) 0.07 X 10*3/uL (0.00-0.10); Basophils % (A) 1.2 %; Eosinophils # (A) 0.18 X 10*3/uL (0.04-0.35); Eosinophils % (A) 3.1 %; HCT 45.5 % (37.2-46.3); HGB 14.5 g/dL (12.0-15.0); Lymphocytes # (A) 1.45 X 10*3/uL (0.90-5.00); Lymphocytes % (A) 24.6 %; MCH 30.1 pg (27.0-32.0); MCHC 31.9 g/dL (32.0-37.0); MCV 94.6 FL (80.0-97.0); Mean Platelet Volume 11.1 FL (9.5-12.2); Monocytes # (A) 0.52 X 10*3/uL (0.20-1.00); Monocytes % (A) 8.8 %; NRBC Per 100 WBC 0 X 10*3/uL (0.00-0.01); Neutrophils # (A) 3.66 X 10*3/uL (1.80-7.70); Platelet Count 261 X 10*3/uL (140-440); RBC 4.81 X 10*6/uL (4.10-5.20)
[2024-08-08 12:30] LABS: Free Kappa Lt Chain Qnt, Serum 1.18 mg/dL (0.33-1.94); Free Lambda Lt Chain Qnt, Seru 1.13 mg/dL (0.57-2.63)
== END | disposition home or self-care (01) ==
LOC: LABWHC1 11:05
PROVIDERS: ATTEND Family Medicine
DX: Z00.00 Encounter for general adult medical examination without abnormal findings (principal); D47.2 Monoclonal gammopathy
CPT/HCPCS: 36415; 80053; 80061; 82306; 83883; 84156; 84165; 84443; 85025

== ENCOUNTER → 2024-08-13 | Outpatient (CLI) | payer MEDICARE ==
--- NOTE | 2024-08-13 13:23 | MM ---
Reason for Exam: Screening (asymptomatic). Last screening mammogram was performed 12 month(s) ago. Patient History: Menarche at age 10. First Full-Term at age 35. Late child-bearing (after 30). Postmenopausal. Patient has history of breast feeding. Estrogen, starting at age 62 for 1 year. Hormonal Contraceptives for 4 years from age 47 until age 52. Maternal aunt had ovarian cancer, age 50. Maternal aunt had ovarian cancer, age 50. Maternal cousin had ovarian cancer, age 45. Niece had breast cancer under age 50. Niece had breast cancer at or over age 50. Risk Values: Rossana 5 year model risk: 2.3%. NCI Lifetime model risk: 8.2%. Prior Study Comparison: 06/21/2022 Right MG work up mamm w CAD RT, [facility]. 12/18/2022 Right MG 3D diag mammo w/cad RT, [facility]. 08/01/2023 Bilateral MG 3D screening mammo w/cad, [facility]. Tissue Density: There are scattered areas of fibroglandular density. Findings: Analyzed By CAD. Right breast: There is no suspicious group of microcalcifications or new suspicious mass. Left breast: There is no suspicious group of microcalcifications or new suspicious mass. Overall Assessment: Negative, BI-RAD 1 Management: Screening Mammogram of both breasts in [address] [facility] will attempt to contact patient to return for supplemental views and ultrasound if indicated. Patient should continue monthly self-breast exams. A clinical breast exam by your physician is recommended on an annual basis. This exam should not preclude additional follow-up of suspicious palpable abnormalities. Note on Rossana scores and lifetime risk: 1. A Rossana score greater than 3% is considered moderate risk. If this is the case, consider specialist referral to assess eligibility for a risk reducing agent. 2. If overall lifetime risk for the development of breast cancer is 20% or higher, the patient may qualify for future screening with alternating mammogram and breast MRI. [facility], , 08/13/2024 1:20 PM. Electronically signed and approved by: David Frank DO
== END | disposition home or self-care (01) ==
LOC: RADMAMWWP 08:11
PROVIDERS: ATTEND Internal Medicine Critical Care Medicine
DX: Z12.31 Encounter for screening mammogram for malignant neoplasm of breast (principal); Z78.0 Asymptomatic menopausal state; Z85.3 Personal history of malignant neoplasm of breast; R92.323 Mammographic fibroglandular density, bilateral breasts
CPT/HCPCS: 77063; 77067